=== PATIENT | male | born 1955 | race Caucasian/White ===

== ENCOUNTER 2018-12-10 10:31 | Emergency (ER) | payer OTHER ==
[~2018-12-10] VITALS: Ht 162.6 cm; Wt 81.7 kg
[~2018-12-10 10:31] MED LIST: ALPR0.25 PO; IBUP800T48 PO
[2018-12-10 10:51] VITALS: BP 140/77; PULSE 62; RESP 18; Ht 162.6 cm; Wt 81.7 kg
--- NOTE | 2018-12-10 12:22 | ERD ---
ER Documentation Chief Complaint Chief Complaint left shoulder pain s/p loss balance & fell last night, HPI 63-year-old male, presents the emergency department, complaining of left shoulder pain, after falling yesterday while the patient was tying his shoes landing on the left upper body. The patient refers that the pain is dull, associated with decreased range of motion for extension. He denies distal weakness, numbness or tingling. The patient has not taken any medications for pain. ROS All systems reviewed and are negative except as per history of present illness. Medications Home Meds Active Scripts Naproxen* (Naprosyn*) 500 Mg Tablet, 500 MG PO BID PRN for PAIN AND/OR INFLAMMATION for 5 Days, #10 TAB Prov:DENTON DUPREE MD 12/10/18 Acetaminophen* (Tylenol*) 325 Mg Tablet, 2 TAB PO Q6 PRN for PAIN AND OR ELEVATED TEMP, #20 TAB Prov:DENTON DUPREE MD 12/10/18 Ibuprofen* (Motrin*) 800 Mg Tab, 800 MG PO Q6, #15 TAB Prov:ANA JENNINGS NP 01/02/16 Alprazolam* (Xanax*) 0.25 Mg Tablet, 0.25 MG PO TID for ANXIETY, #10 TAB Prov:OMAR CARLOS MD 11/23/15 Allergies Allergies: Coded Allergies: No Known Allergy (Unverified , 11/23/15) PMhx/Soc Hx Cardiac Disorders: Yes (HTN ) Hx Alcohol Use: No Hx Substance Use: No Hx Tobacco Use: No FmHx Family History: diabetes; No coronary disease Physical Exam Vitals Vital Signs Date Temp Pulse Resp B/P (MAP) Pulse Ox O2 O2 Flow FiO2 Time Delivery Rate 12/10/18 97.9 62 18 140/77 98 10:51 (98) Physical Exam Const: No acute distress Head: Atraumatic Eyes: Normal Conjunctiva ENT: Normal External Ears, Nose and Mouth. Neck: Full range of motion. No meningismus. Resp: Clear to auscultation bilaterally Cardio: Regular rate and rhythm, no murmurs Abd: Soft, non tender, non distended. Normal bowel sounds Skin: No petechiae or rashes Back: No midline or flank tenderness Ext: Left shoulder: Normal inspection, anterior acromioclavicular tenderness, decreased range of motion due to pain, no cyanosis, or edema Neur: Awake and alert Psych: Normal Mood and Affect Results 24 hrs Patient: ANN MARIE SIMS : 1955 Age: 63 Sex: M MR #: [id number] DOS: 12/10/18 1226 Ordering MD: DENTON DUPREE MD Location: [facility] Room/Bed: PROCEDURE: XR left shoulder. CLINICAL INDICATION: Left shoulder pain s/pfall TECHNIQUE: 3 views of the left shoulder were performed. COMPARISON: None. FINDINGS: No acute fracture or dislocation. No significant arthropathy or erosive changes. Soft tissues are normal surrounding the shoulder. Small calcified granuloma over the left upper lobe. IMPRESSION: Unremarkable left shoulder. Procedures/MDM Acute right shoulder pain: no red flags. Differential diagnosis include but not limited to: Shoulder contusion, rotator cuff injury, tendon/ligament injury, arthritis; low suspicion for fracture, dislocation, septic arthritis. Neurovascular exam grossly intact. no clinical findings suggestive of acute infectious process, no acute deformity, no edema, no rashes. Physical examination and clinical presentation consistent most likely with shoulder contusion. During the ED course the patient received treatment with Toradol IM presenting overall improvement of the symptoms. Results and clinical impression discussed with the patient who agrees with management. The patient is stable to be treated outpatient and will be discharged home with recommendations for ice, rest, NSAIDs 3 times daily for 5 days and close monitoring. The patient was instructed to follow up with the primary care provider in the next 48h. If symptoms persist, worsen or new symptoms develop, then patient should return to the ED immediately. Instructions explained and given to patient with acknowledgment and demonstrated understanding. Disclaimer: Inadvertent spelling and grammatical errors are likely due to EHR/dictation software use and do not reflect on the overall quality of patient care. Also, please note that the electronic time recorded on this note does not necessarily reflect the actual time of the patient encounter. Departure Diagnosis: Primary Impression: Injury of left shoulder Additional Impression: Contusion of shoulder, left Condition: Stable Additional Instructions: Muchas lakhwinder por [facility] para amaro servicio. Esperamos que en amaro visita a la fam de emergencia amaro problema medico haya sido solucionado y que se sienta mucho mejor. Para estar seguros que amaro mejoria sigue en proceso, le pedimos el favor de hacer oleg richie de seguimiento medico con amaro doctor primario en los proximos 2-4 frazier. Lleve con usted estos documentos y las medicinas recetadas. Si gallo sintomas empeoran, NO SE ESPERE, por favor regrese a fam de emergencia INMEDIATAMENTE. En stephanie que usted no tenga un mdico de atencin primaria: Llame al mdico o clnica comunitaria de referencia que aparece abajo daniel las horas de consultorio para hacer oleg richie para que le vean. CLINICAS: [facility] [id number] [phone] [facility] [phone] [facility] [phone] [facility] [phone] [address] [facility] [phone] DENTON MARTIN MD Dec 10, 2018 12:22
[2018-12-10] MEDS ORDERED: NAPR-985 PO (13:33)
[2018-12-10] MEDS ORDERED: ACET325T33 PO (13:33)
== END 2018-12-10 13:41 | disposition home or self-care (01) ==
LOC: FTE 10:31
DX: S40.012A Contusion of left shoulder, initial encounter (principal); I10 Essential (primary) hypertension; W18.39XA Other fall on same level, initial encounter; Y92.9 Unspecified place or not applicable
CPT/HCPCS: 73030; Z7502